=== PATIENT | male | born 1985 | race Caucasian/White ===

== ENCOUNTER 2017-09-14 14:09 | Emergency (ER) | payer OTHER ==
[~2017-09-14] VITALS: Ht 172.7 cm; Wt 199.1 kg
[2017-09-14 14:46] VITALS: BP 166/95
--- NOTE | 2017-09-14 14:56 | NUR ---
TO LOBBY, NUZHATA/W FERNANDO GARCIA NOTED
--- NOTE | 2017-09-14 14:57 | NUR ---
TO BED #10, AMBULATORY, EKG DONE
--- NOTE | 2017-09-14 15:06 | NUR ---
JANES H/A, STARTED TODAY, SEEN IN A CLINIC WITH REFERRAL LETTER
[2017-09-14] MEDS ORDERED: NACL 0.9% 500 ML IV ONE (15:15)
[2017-09-14 15:41] LABS: BASOPHILS # (AUTO) 0.8 K/uL (0.00-0.22); EOSINOPHILS # (AUTO) 0.1 K/uL (0-0.4); HEMATOCRIT 46.4 % (36-52); HEMOGLOBIN 15.4 g/dL (12.0-18.0); LYMPHOCYTES # (AUTO) 1.6 K/uL (2.0-11.5); MEAN CORPUSCULAR HEMOGLOBIN 32 pg (27-31); MEAN CORPUSCULAR HGB CONC 33 g/dL (33-37); MEAN CORPUSCULAR VOLUME 95 fL (80-94); MONOCYTES # (AUTO) 0.5 K/uL (0.8-1.0); PLATELET COUNT (AUTO) 218 K/uL (140-450); RED BLOOD CELL COUNT(AUTO) 4.88 MIL/uL (4.20-6.10)
[2017-09-14 15:55] LABS: CARBON DIOXIDE 30.2 mmol/L (21-32); CREATININE 0.9 mg/dL (0.7-1.3); POTASSIUM 4.2 mmol/L (3.5-5.1)
[2017-09-14 16:08] LABS: ALBUMIN 3.3 g/dL (3.4-5.0); TOTAL BILIRUBIN 1.1 mg/dL (0.0-1.0)
[2017-09-14 17:24] VITALS: BP 129/76
--- NOTE | 2017-09-14 17:28 | NUR ---
Patient discharged with v/s stable. Written and verbal after care instructions given and explained. Patient verbalized understanding. Ambulatory with steady gait. All questions addressed prior to discharge. Advised to follow up with PMD.
== END 2017-09-14 17:28 | disposition home or self-care (01) ==
LOC: MED 14:09
DX: E86.0 Dehydration (principal); I10 Essential (primary) hypertension
CPT/HCPCS: 36415; 80053; 84484; 85025; 93005; 96360; 99285; J7030